=== PATIENT | female | born 1990 | race Hispanic/Latino ===

== ENCOUNTER 2019-06-06 16:39 | Emergency (ER) | payer OTHER ==
[2019-06-06] MEDS ORDERED: LIDOCAINE 1%-EPI 1:100,000 20 ML VIAL IJ ONE (16:51)
[2019-06-06] MEDS ORDERED: TETANUS/DIPHTHERIA TOXOID [ADULT] 0.5 ML VIAL IM ONE (16:51)
== END 2019-06-06 18:55 | disposition home or self-care (01) ==
LOC: EDH 16:39
DX: S01.81XA Laceration without foreign body of other part of head, initial encounter (principal); Z72.0 Tobacco use; W01.0XXA Fall on same level from slipping, tripping and stumbling without subsequent striking against object, initial encounter; Y93.02 Activity, running; Y92.89 Other specified places as the place of occurrence of the external cause; Y99.8 Other external cause status
CPT/HCPCS: 12053; 70140; 90471; 90714; 99285; J3490

== ENCOUNTER 2019-06-13 22:23 | Emergency (ER) | payer OTHER | END 2019-06-13 23:10 | disposition home or self-care (01) | LOC: EDH 22:23 | DX: S01.112D Laceration without foreign body of left eyelid and periocular area, subsequent encounter (principal); Z72.0 Tobacco use; X58.XXXD Exposure to other specified factors, subsequent encounter | CPT/HCPCS: 99281 ==

== ENCOUNTER 2020-06-02 23:12 | Emergency (ER) | payer OTHER ==
[2020-06-02] MEDS ORDERED: IBUPROFEN 600 MG TABLET ONE (23:28)
[2020-06-02] MEDS ORDERED: CEFTRIAXONE SODIUM 1 GM ONE (23:32)
[2020-06-02] MEDS ORDERED: METRONIDAZOLE 500MG/100ML BAG 100 ML ONE (23:32)
[2020-06-02] MEDS ORDERED: METRONIDAZOLE 500 MG TABLET ONE (23:43)
[2020-06-02 23:46] LABS: BASOPHILS % (AUTO) 0.4 % (0.0-5.0); EOSINOPHILS % (AUTO) 0.2 % (0.0-8.0); HEMATOCRIT 40.4 % (36-48); LYMPHOCYTES % (AUTO) 1.8 % (21.0-51.0); MEAN CORPUSCULAR HEMOGLOBIN 30.9 pg (27.0-33.0); MEAN CORPUSCULAR HGB CONC 34.2 g/dL (32.0-36.0); MEAN CORPUSCULAR VOLUME 90.4 fL (79-99); MONOCYTES % (AUTO) 3.9 % (3.0-13.0); NEUTROPHILS % (AUTO) 93.4 % (40.0-77.0); PLATELET COUNT (AUTO) 229 K/uL (130-400); RED BLOOD CELL COUNT(AUTO) 4.47 MIL/uL (4.00-5.50); RED CELL DISTRIBUTION WIDTH 13.1 % (11.0-15.5); WHITE BLOOD COUNT (AUTO) 11.1 K/uL (4.8-10.8)
[2020-06-02 23:54] LABS: CREATININE 0.8 mg/dL (0.5-1.5); POTASSIUM 4.1 mmol/L (3.5-5.1)
[2020-06-02 23:59] LABS: ALBUMIN 3.6 g/dL (3.5-5.0); BILIRUBIN,TOTAL 0.2 mg/dL (0.2-1.0); TOTAL PROTEIN, SERUM 7.2 g/dL (6.0-8.3)
[2020-06-03 00:39] LABS: APPEARANCE,URINE Clear (CLEAR); BILIRUBIN,URINE Negative (NEGATIVE); COLOR,URINE Yellow (YELLOW); GLUCOSE, URINE (UA) TRACE mg/dL (NEGATIVE); KETONES,URINE Negative (NEGATIVE); LEUKOCYTE ESTERASE ,URINE Trace (NEGATIVE); NITRATE,URINE Negative (NEGATIVE); OCCULT BLOOD,URINE Negative (NEGATIVE); PROTEIN,URINE Negative (NEGATIVE); UROBILINOGEN,URINE 0.2 mg/dL (0.2-1.0)
[2020-06-03 00:51] LABS: BACTERIA,URINE None Seen /HPF (None Seen); RBC,URINE None Seen /HPF (0-1); SQUAMOUS EPITHELIAL CELL,UR Few /HPF (0-2); WBC,URINE 0-1 /HPF (0-1)
[2020-06-03] MEDS ORDERED: SODIUM CHLORIDE 0.9% 500ML 500 ML IV ONE (01:36)
== END 2020-06-03 02:27 | disposition home or self-care (01) ==
LOC: EDH 23:12
DX: K02.9 Dental caries, unspecified (principal); K08.89 Other specified disorders of teeth and supporting structures; R50.9 Fever, unspecified; Z72.0 Tobacco use
CPT/HCPCS: 36415; 80053; 81001; 83605; 85025; 87040 ×2; 96361 ×2; 96374; 99283; J0696; J3490; J7040

== ENCOUNTER 2021-03-19 21:45 | Emergency (ER) | payer OTHER ==
[~2021-03-19] VITALS: Ht 165.1 cm; Wt 74.8 kg
[2021-03-19 21:46] VITALS: BP 159/104
[2021-03-19] MEDS ORDERED: GUAIFENESIN-CODEINE 5 ML SYRUP PO ONE (22:30)
[2021-03-19 22:32] LABS: BASOPHILS % (AUTO) 0.4 % (0.0-5.0); EOSINOPHILS % (AUTO) 1.1 % (0.0-8.0); HEMATOCRIT 42.6 % (36-48); LYMPHOCYTES % (AUTO) 25.3 % (21.0-51.0); MEAN CORPUSCULAR HEMOGLOBIN 29.6 pg (27.0-33.0); MEAN CORPUSCULAR HGB CONC 32.4 g/dL (32.0-36.0); MEAN CORPUSCULAR VOLUME 91.2 fL (79-99); MONOCYTES % (AUTO) 8.7 % (3.0-13.0); NEUTROPHILS % (AUTO) 64.1 % (40.0-77.0); PLATELET COUNT (AUTO) 282 K/uL (130-400); RED BLOOD CELL COUNT(AUTO) 4.67 MIL/uL (4.00-5.50); RED CELL DISTRIBUTION WIDTH 14.1 % (11.0-15.5); WHITE BLOOD COUNT (AUTO) 4.7 K/uL (4.8-10.8)
[2021-03-19 22:42] LABS: CREATININE 0.8 mg/dL (0.5-1.5); POTASSIUM 3.6 mmol/L (3.5-5.1)
[2021-03-19 22:47] LABS: ALBUMIN 3.5 g/dL (3.5-5.0); BILIRUBIN,TOTAL 0.3 mg/dL (0.2-1.0); TOTAL PROTEIN, SERUM 7.1 g/dL (6.0-8.3)
[2021-03-19 22:47] LABS: APPEARANCE,URINE Clear (CLEAR); BILIRUBIN,URINE Negative (NEGATIVE); COLOR,URINE Dark Yellow (YELLOW); GLUCOSE, URINE (UA) Negative (NEGATIVE); KETONES,URINE >=80 mg/dL (NEGATIVE); LEUKOCYTE ESTERASE ,URINE Negative (NEGATIVE); NITRATE,URINE Negative (NEGATIVE); OCCULT BLOOD,URINE Moderate (NEGATIVE); PH,URINE 5.5 (5.0-8.0); PROTEIN,URINE Trace mg/dL (NEGATIVE)
[2021-03-19 22:59] LABS: BACTERIA,URINE Rare /HPF (None Seen); MUCUS,URINE Few LPF (None Seen); SQUAMOUS EPITHELIAL CELL,UR Moderate /HPF (0-2); WBC,URINE 0-1 /HPF (0-1)
[2021-03-19] MEDS ORDERED: DEXAMETHASONE SOD PHOSPHATE 4 MG/ML 1ML VIAL IM SCH (23:00)
[2021-03-19] MEDS ORDERED: CETI10CA5 PO (23:27)
[2021-03-19] MEDS ORDERED: D-ME118S47 PO (23:27)
[2021-03-19 23:28] VITALS: BP 147/99
== END 2021-03-19 23:57 | disposition home or self-care (01) ==
LOC: EDH 21:45
DX: U07.1 COVID-19 (principal); Z79.52 Long term (current) use of systemic steroids
CPT/HCPCS: 36415; 71045; 80053; 81001; 84484; 85025; 87635; 93005; 96372; 99285; C9803; J1100

== ENCOUNTER 2021-03-25 06:30 | Emergency (ER) | payer OTHER, SELFPAY ==
[~2021-03-25] VITALS: Ht 165.1 cm; Wt 73.0 kg
[~2021-03-25 06:30] MED LIST: CETI10CA5 PO; D-ME118S47 PO
[2021-03-25 06:36] VITALS: BP 128/90
[2021-03-25 07:33] VITALS: BP 118/68
[2021-03-25] MEDS ORDERED: ALBUHFA IH (08:35)
[2021-03-25] MEDS ORDERED: BUDE10.2 IH (08:36)
== END 2021-03-25 09:19 | disposition home or self-care (01) ==
LOC: EDH 06:30
DX: U07.1 COVID-19 (principal); Z79.51 Long term (current) use of inhaled steroids
CPT/HCPCS: 71045

== ENCOUNTER 2021-09-05 01:54 | Emergency (ER) | payer OTHER ==
[~2021-09-05] VITALS: Ht 165.1 cm; Wt 72.6 kg
[~2021-09-05 01:54] MED LIST changes: +ALBUHFA IH; +BUDE10.2 IH
[2021-09-05 01:56] VITALS: BP 133/92
[2021-09-05] MEDS ORDERED: NAPR375T6 PO (03:40)
== END 2021-09-05 04:00 | disposition home or self-care (01) ==
LOC: EDH 01:54
DX: S62.326A Displaced fracture of shaft of fifth metacarpal bone, right hand, initial encounter for closed fracture (principal); S02.2XXA Fracture of nasal bones, initial encounter for closed fracture; Z79.51 Long term (current) use of inhaled steroids; Z79.899 Other long term (current) drug therapy; X58.XXXA Exposure to other specified factors, initial encounter; Y93.89 Activity, other specified; Y92.89 Other specified places as the place of occurrence of the external cause; Y99.8 Other external cause status
CPT/HCPCS: 29125; 70160; 73130

== ENCOUNTER 2022-04-30 18:26 | Emergency (ER) | payer OTHER ==
[~2022-04-30] VITALS: Ht 165.1 cm; Wt 72.6 kg
[~2022-04-30 18:26] MED LIST changes: +NAPR375T6 PO
[2022-04-30 18:32] VITALS: BP 171/98
[2022-04-30] MEDS ORDERED: L.E.T. GEL 3ML SYG TP ONE (20:53)
[2022-04-30] MEDS ORDERED: IBUPROFEN 600 MG TABLET ONE (21:25)
[2022-04-30] MEDS ORDERED: IBUPROFEN 600 MG TABLET PO ONE (21:30)
[2022-04-30] MEDS ORDERED: SILVER SULFADIAZINE CREAM 50 GM TP ONE (22:15)
[2022-04-30] MEDS ORDERED: IBUP-2070 PO (22:33)
== END 2022-04-30 22:55 | disposition home or self-care (01) ==
LOC: EDH 18:26
DX: T22.211A Burn of second degree of right forearm, initial encounter (principal); Z79.1 Long term (current) use of non-steroidal anti-inflammatories (NSAID); Z79.51 Long term (current) use of inhaled steroids; T31.0 Burns involving less than 10% of body surface; X19.XXXA Contact with other heat and hot substances, initial encounter; Y93.89 Activity, other specified; Y92.89 Other specified places as the place of occurrence of the external cause; Y99.8 Other external cause status
CPT/HCPCS: 16020; 99282